=== PATIENT | male | born 1960 | race Caucasian/White ===

== ENCOUNTER 2020-09-08 07:23 | Outpatient (REF) | payer BC, SELFPAY ==
[2020-09-08 10:23] LABS: MANUAL DIFF FLAG NO
[2020-09-08 10:37] LABS: Basophils Percent Auto 0.7 % (0-2); Eosinophils Absolute Auto 0.2 X10*3/uL (0.0-0.4); Eosinophils Percent Auto 2.5 % (0-4); Hematocrit 44.2 % (42-52); Hemoglobin 14.4 g/dl (14.0-18.0); Imm Gran Abs Auto 0.02 X10*3/uL (0.00-0.03); Imm Gran Pct Auto 0.3 % (0.0-0.4); Lymphocytes Absolute Auto 1.8 X10*3/uL (1.2-4.9); Mean Corpuscular HGB Conc 32.6 g/dl (31.0-36.0); Mean Corpuscular Hemoglobin 30.8 pg (27.0-33.0); Mean Corpuscular Volume 94.6 fL (80-98); Mean Platelet Volume 11.4 fL (9.4-12.4); Monocytes Absolute Auto 0.7 X10*3/uL (0.1-1.2); Monocytes Percent Auto 11.3 % (2-11); Neutrophils Absolute Auto 3.4 X10*3/uL (2.0-8.3); Neutrophils Percent Auto 55.2 % (45-73); Platelet Count 245 X10*3/uL (160-400); Red Blood Count 4.67 X10*6/uL (4.60-5.80); Red Cell Distribution Width 12.4 % (11.0-16.0); White Blood Count 6.1 X10*3/uL (4.8-10.8)
[2020-09-08 11:05] LABS: Glucose Urine UA 100 MG/DL (NEG); Leukocyte Esterase Urine NEG (NEG); Nitrite Urine NEG (NEG); Specific Gravity - Urine <= 1.005 (1.005-1.025); Urine Blood NEG (NEG); Urine Ketones NEG (NEG); Urine Protein NEG (NEG-TRACE)
[2020-09-08 11:06] LABS: Alanine Aminotransferase 33 U/L (0-40); Albumin Level 4.6 g/dL (3.5-5.0); Alkaline Phosphatase 38 U/L (39-117); Anion Gap 15 (12-20); Aspartate Amino Transferase 28 U/L (5-37); Bilirubin Total 0.6 mg/dL (0.0-1.0); Blood Urea Nitrogen 18 mg/dL (9-16); Calcium 9.7 mg/dL (8.4-10.2); Carbon Dioxide 27 mmol/L (22-29); Chloride 102 mmol/L (96-108); Cholesterol 176 mg/dL; Estimated Glomerular Filt Rate > 60; Glucose Fasting 88 mg/dL (60-99); HDL Cholesterol 38 mg/dL; LDL Cholesterol Calculated 88 mg/dl; Potassium 5.1 mmol/L (3.3-5.1); Sodium 139 mmol/L (135-145); Total Protein 7.3 g/dL (6.5-8.0); Triglycerides 252 mg/dL
[2020-09-08 11:12] LABS: Appearance Urine CLEAR; Color Urine STRAW
[2020-09-08 11:29] LABS: Prostate Specific Antigen Scr 0.65 ng/mL (<0.05-4.0)
== END 2020-09-08 07:24 | disposition home or self-care (01) ==
LOC: HO.10HDL 07:23
PROVIDERS: Visit Provider Internal Medicine
DX: Z00.00 Encounter for general adult medical examination without abnormal findings (principal); Z12.5 Encounter for screening for malignant neoplasm of prostate
CPT/HCPCS: 36415; 80053; 80061; 81003; 84153; 85025

== ENCOUNTER 2021-03-28 07:31 | Outpatient (REF) | payer BC, SELFPAY ==
[2021-03-28 10:48] LABS: Alanine Aminotransferase 31 U/L (0-40); Albumin Level 4.7 g/dL (3.5-5.0); Alkaline Phosphatase 36 U/L (39-117); Anion Gap 13 (12-20); Aspartate Amino Transferase 24 U/L (5-37); Bilirubin Total 0.8 mg/dL (0.0-1.0); Blood Urea Nitrogen 14 mg/dL (9-16); Calcium 10.2 mg/dL (8.4-10.2); Carbon Dioxide 27 mmol/L (22-29); Chloride 105 mmol/L (96-108); Cholesterol 171 mg/dL; Estimated Glomerular Filt Rate > 60; Glucose Fasting 98 mg/dL (60-99); HDL Cholesterol 41 mg/dL; LDL Cholesterol Calculated 95 mg/dl; Potassium 5.3 mmol/L (3.3-5.1); Sodium 140 mmol/L (135-145); Total Protein 7.3 g/dL (6.5-8.0); Triglycerides 177 mg/dL
== END 2021-03-28 07:32 | disposition home or self-care (01) ==
LOC: HO.10HDL 07:31
PROVIDERS: Visit Provider Internal Medicine
DX: I10 Essential (primary) hypertension (principal); E78.5 Hyperlipidemia, unspecified
CPT/HCPCS: 36415; 80053; 80061

== ENCOUNTER 2022-05-22 07:26 | Outpatient (REF) | payer BC, SELFPAY ==
[2022-05-22 10:37] LABS: MANUAL DIFF FLAG NO
[2022-05-22 10:46] LABS: Basophils Absolute Auto 0.1 X10*3/uL (0.0-0.2); Basophils Percent Auto 0.7 % (0-2); Eosinophils Absolute Auto 0.1 X10*3/uL (0.0-0.4); Hematocrit 44.6 % (42.0-52.0); Hemoglobin 14.4 g/dl (14.0-18.0); Imm Gran Abs Auto 0.01 X10*3/uL (0.00-0.03); Imm Gran Pct Auto 0.1 % (0.0-0.4); Lymphocytes Absolute Auto 2.2 X10*3/uL (1.2-4.9); Lymphocytes Percent Auto 31.2 % (20-40); Mean Corpuscular HGB Conc 32.3 g/dl (31.0-36.0); Mean Corpuscular Hemoglobin 30.3 pg (27.0-33.0); Mean Corpuscular Volume 93.9 fL (80.0-98.0); Mean Platelet Volume 11.1 fL (9.4-12.4); Monocytes Absolute Auto 0.8 X10*3/uL (0.1-1.2); Monocytes Percent Auto 11.1 % (2-11); Neutrophils Absolute Auto 3.8 x10*3/uL (2.0-8.3); Neutrophils Percent Auto 54.9 % (45-73); Platelet Count 229 X10*3/uL (160-400); Red Blood Count 4.75 X10*6/uL (4.60-5.80); Red Cell Distribution Width 12.8 % (11.0-16.0); White Blood Count 6.9 X10*3/uL (4.8-10.8)
[2022-05-22 11:16] LABS: Alanine Aminotransferase 28 U/L (0-40); Albumin Level 4.7 g/dL (3.5-5.0); Alkaline Phosphatase 35 U/L (39-117); Anion Gap 14 (12-20); Aspartate Amino Transferase 24 U/L (5-37); Bilirubin Total 0.5 mg/dL (0.0-1.0); Blood Urea Nitrogen 17 mg/dL (9-16); Calcium 9.8 mg/dL (8.4-10.2); Carbon Dioxide 28 mmol/L (22-29); Chloride 102 mmol/L (96-108); Cholesterol 189 mg/dL; Estimated Glomerular Filt Rate 56; Glucose Fasting 97 mg/dL (60-99); HDL Cholesterol 41 mg/dL; LDL Cholesterol Calculated 96 mg/dl; Potassium 5.2 mmol/L (3.3-5.1); Sodium 139 mmol/L (135-145); Total Protein 7.4 g/dL (6.5-8.0); Triglycerides 260 mg/dL
[2022-05-22 11:38] LABS: Prostate Specific Antigen Scr 0.59 ng/mL (<0.05-4.0)
== END 2022-05-22 07:27 | disposition home or self-care (01) ==
LOC: HO.10HDL 07:26
PROVIDERS: Visit Provider Internal Medicine
DX: Z00.00 Encounter for general adult medical examination without abnormal findings (principal); Z12.5 Encounter for screening for malignant neoplasm of prostate
CPT/HCPCS: 36415; 80053; 80061; 84153; 85025

== ENCOUNTER 2022-09-17 09:35 | Outpatient (REF) | payer BC, SELFPAY ==
[2022-09-17 11:30] LABS: Anion Gap 14 (12-20); Blood Urea Nitrogen 18 mg/dL (9-16); Calcium 9.6 mg/dL (8.4-10.2); Carbon Dioxide 27 mmol/L (22-29); Chloride 104 mmol/L (96-108); Estimated Glomerular Filt Rate > 60; Glucose Random 102 mg/dL (60-115); Potassium 4.7 mmol/L (3.3-5.1); Sodium 140 mmol/L (135-145)
== END 2022-09-17 09:36 | disposition home or self-care (01) ==
LOC: HO.10HDL 09:35
PROVIDERS: Visit Provider Internal Medicine
DX: I12.9 Hypertensive chronic kidney disease with stage 1 through stage 4 chronic kidney disease, or unspecified chronic kidney disease (principal); N18.9 Chronic kidney disease, unspecified
CPT/HCPCS: 36415; 80048

== ENCOUNTER 2023-04-24 07:29 | Outpatient (REF) | payer BC, SELFPAY ==
[2023-04-24 10:50] LABS: MANUAL DIFF FLAG NO
[2023-04-24 10:57] LABS: Basophils Absolute Auto 0.1 X10*3/uL (0.0-0.2); Basophils Percent Auto 0.9 % (0-2); Eosinophils Absolute Auto 0.1 X10*3/uL (0.0-0.4); Eosinophils Percent Auto 1.6 % (0-4); Hematocrit 44.3 % (42.0-52.0); Hemoglobin 14.5 g/dl (14.0-18.0); Imm Gran Abs Auto 0.02 X10*3/uL (0.00-0.03); Imm Gran Pct Auto 0.3 % (0.0-0.4); Lymphocytes Absolute Auto 2.3 X10*3/uL (1.2-4.9); Mean Corpuscular HGB Conc 32.7 g/dl (31.0-36.0); Mean Corpuscular Hemoglobin 30.3 pg (27.0-33.0); Mean Corpuscular Volume 92.7 fL (80.0-98.0); Mean Platelet Volume 10.8 fL (9.4-12.4); Monocytes Absolute Auto 0.7 X10*3/uL (0.1-1.2); Monocytes Percent Auto 10.1 % (2-11); Neutrophils Absolute Auto 3.6 x10*3/uL (2.0-8.3); Neutrophils Percent Auto 53.1 % (45-73); Platelet Count 251 X10*3/uL (160-400); Red Blood Count 4.78 X10*6/uL (4.60-5.80); Red Cell Distribution Width 13.1 % (11.0-16.0); White Blood Count 6.9 X10*3/uL (4.8-10.8)
[2023-04-24 11:03] LABS: Alanine Aminotransferase 28 U/L (0-40); Albumin Level 4.6 g/dL (3.5-5.0); Alkaline Phosphatase 36 U/L (39-117); Anion Gap 15 (12-20); Aspartate Amino Transferase 25 U/L (5-37); Bilirubin Total 0.6 mg/dL (0.0-1.0); Blood Urea Nitrogen 16 mg/dL (9-16); Calcium 10.2 mg/dL (8.4-10.2); Carbon Dioxide 27 mmol/L (22-29); Chloride 102 mmol/L (96-108); Cholesterol 166 mg/dL (<200); Estimated Glomerular Filt Rate 59; Glucose Fasting 99 mg/dL (60-99); HDL Cholesterol 37 mg/dL (>40); LDL Cholesterol Calculated 105 mg/dL (<100); Sodium 139 mmol/L (135-145); Total Protein 7.7 g/dL (6.5-8.0); Triglycerides 123 mg/dL (<150)
[2023-04-24 11:21] LABS: Prostate Specific Antigen 1.33 ng/mL (<0.05-4.0)
== END 2023-04-24 07:30 | disposition home or self-care (01) ==
LOC: HO.10HDL 07:29
PROVIDERS: Visit Provider Internal Medicine
DX: Z12.5 Encounter for screening for malignant neoplasm of prostate (principal); I12.9 Hypertensive chronic kidney disease with stage 1 through stage 4 chronic kidney disease, or unspecified chronic kidney disease; N18.9 Chronic kidney disease, unspecified; E78.00 Pure hypercholesterolemia, unspecified; N40.0 Benign prostatic hyperplasia without lower urinary tract symptoms
CPT/HCPCS: 36415; 80053; 80061; 84153; 85025

== ENCOUNTER 2023-09-16 09:29 | Outpatient (REF) | payer BC, SELFPAY ==
[2023-09-16 11:28] LABS: Anion Gap 12 (12-20); Blood Urea Nitrogen 18 mg/dL (9-16); Calcium 9.7 mg/dL (8.4-10.2); Carbon Dioxide 29 mmol/L (22-29); Chloride 105 mmol/L (96-108); Estimated Glomerular Filt Rate 58; Glucose Random 94 mg/dL (60-115); Potassium 4.7 mmol/L (3.3-5.1); Sodium 141 mmol/L (135-145)
== END 2023-09-16 09:30 | disposition home or self-care (01) ==
LOC: HO.10HDL 09:29
PROVIDERS: Visit Provider Internal Medicine
DX: E78.00 Pure hypercholesterolemia, unspecified (principal); I12.9 Hypertensive chronic kidney disease with stage 1 through stage 4 chronic kidney disease, or unspecified chronic kidney disease; N18.9 Chronic kidney disease, unspecified
CPT/HCPCS: 36415; 80048

== ENCOUNTER 2024-05-01 07:49 | Outpatient (REF) | payer BC, SELFPAY ==
[2024-05-01 10:07] LABS: MANUAL DIFF FLAG NO
[2024-05-01 10:09] LABS: Basophils Percent Auto 0.5 % (0-2); Eosinophils Absolute Auto 0.1 X10*3/uL (0.0-0.4); Eosinophils Percent Auto 1.5 % (0-4); Hematocrit 42.3 % (42.0-52.0); Hemoglobin 13.9 g/dl (14.0-18.0); Imm Gran Abs Auto 0.01 X10*3/uL (0.00-0.03); Imm Gran Pct Auto 0.2 % (0.0-0.4); Lymphocytes Absolute Auto 1.9 X10*3/uL (1.2-4.9); Lymphocytes Percent Auto 30.2 % (20-40); Mean Corpuscular HGB Conc 32.9 g/dl (31.0-36.0); Mean Corpuscular Hemoglobin 30.8 pg (27.0-33.0); Mean Corpuscular Volume 93.6 fL (80.0-98.0); Mean Platelet Volume 10.9 fL (9.4-12.4); Monocytes Absolute Auto 0.7 X10*3/uL (0.1-1.2); Monocytes Percent Auto 10.5 % (2-11); Neutrophils Absolute Auto 3.5 x10*3/uL (2.0-8.3); Neutrophils Percent Auto 57.1 % (45-73); Platelet Count 249 X10*3/uL (160-400); Red Blood Count 4.52 X10*6/uL (4.60-5.80); Red Cell Distribution Width 12.8 % (11.0-16.0); White Blood Count 6.2 X10*3/uL (4.8-10.8)
[2024-05-01 10:40] LABS: Alanine Aminotransferase 37 U/L (0-40); Albumin Level 4.4 g/dL (3.5-5.0); Alkaline Phosphatase 29 U/L (39-117); Anion Gap 14 (12-20); Aspartate Amino Transferase 26 U/L (5-37); Bilirubin Total 0.7 mg/dL (0.0-1.0); Blood Urea Nitrogen 16 mg/dL (9-16); Calcium 9.9 mg/dL (8.4-10.2); Carbon Dioxide 28 mmol/L (22-29); Chloride 104 mmol/L (96-108); Cholesterol 119 mg/dL (<200); Estimated Glomerular Filt Rate 54; Glucose Fasting 101 mg/dL (60-99); HDL Cholesterol 38 mg/dL (>40); LDL Cholesterol Calculated 62 mg/dL (<100); Potassium 4.6 mmol/L (3.3-5.1); Sodium 141 mmol/L (135-145); Triglycerides 97 mg/dL (<150)
[2024-05-01 10:41] LABS: Prostate Specific Antigen Scr 0.83 ng/mL (<0.05-4.0)
== END 2024-05-01 07:50 | disposition home or self-care (01) ==
LOC: HO.10HDL 07:49
PROVIDERS: Visit Provider Internal Medicine
DX: I10 Essential (primary) hypertension (principal); E78.00 Pure hypercholesterolemia, unspecified; R35.1 Nocturia; Z12.5 Encounter for screening for malignant neoplasm of prostate
CPT/HCPCS: 36415; 80053; 80061; 84153; 85025

== ENCOUNTER 2024-08-14 08:53 | Day surgery (SDC) | payer BC, SELFPAY ==
--- OUTSIDE RECORDS SUMMARY | 2024-07-17 12:38 | XMS_ITS ---
Author Organization [facility] Address [address] [place] [address] Care Team Providers Care Pleasure Craft Sailor Name Role Phone Arian Soler MD Primary Care Provider Bunny Rothman Jr ALLERGIES No Known Allergies REASON FOR VISIT Patient presents today for a screening colonoscopy MEDICATIONS Medication SIG (Take, Route, Frequency, Duration) Notes Start Date End Date Status Lisinopril 5 MG 1 tablet Orally Once a day Active Viagra 50 MG 1 tablet as needed O rally Once a week Active Tadalafil 5 MG TAKE 1 TABLET BY RETA TH EVERY DAY Oral for 30 Active Rosuvastatin Calcium 10 MG TAKE 1 TABLET BY MOUTH AT BEDTIME Oral for 30 Active SOCIAL HISTORY Sex Assigned At : Social History Observation Description Sex Assigned At Unknown Alcohol Screen Question Answer Notes Did you have a drink containing alcohol in the p ast year? No Points 0 Interpretation Negative VITAL SIGNS BMI 24.88 kg/m2 07/13/2024 Blood pressure systolic 000 mm Hg 07/13/19 25 Blood pressure diastolic 00 mm Hg 025 Height 67.5 in 07/13/2024 Temperature 96.9 degrees Fahrenheit 07/13/19 25 Weight 161 lb 4 oz lbs 07/13/2024 Encounters Encounter Location Date Provider Diagnosis [facility] [address] [place] [address] 07/13/2024 Bunny Lla Jr Colon cancer screening Z12.11 ASSESSMENTS Encounter Date Diagnosis Assessment Notes Treatment Notes Treatment Clinical Notes 07/13/2024 Colon cancer screening (ICD-10 - Z12.11) Abdominal pain material was printed PLAN OF TREATMENT Treatment Notes Assessment Notes Colon cancer screening Abdominal pain ma terial was printed Next Appt Details Provider Name:Bunny valle Jr, 08/14/2024 11:20:00 AM, [address] [place] [address] , [place], [place], [phone],
--- OUTSIDE RECORDS SUMMARY | 2024-07-17 12:39 | XMS_ITS | Patient Health Record ---
Author Organization [facility] Address [address] [place] [address] Care Team Providers Care Nursing Home Director Name Role Phone Arian Soler MD Primary Care Provider Bunny Rothman Jr [phone] ALLERGIES No Known Allergies REASON FOR REFERRAL No Information MEDICATIONS Medication SIG (Take, Route, Frequency, Duration) [...] MOUTH AT BEDTIME Oral for 30 Active IMMUNIZATIONS Vaccine Route Administration Date Status Comme nts Influenza Unknown 02/25/2024 Administered SOCIAL HISTORY Sex Assigned At : Social History Observation Description Sex Assigned At Unknown Alcohol Screen Question Answer Notes Did you have a drink containing alcohol in the p ast year? No Points 0 Interpretation Negative PROBLEMS Problem Type ICD Code Onset Dates Problem Status W/U Status Risk SNOMED Code Notes Problem Colon cancer screening (V76.51) Active confirmed 214056738 VITAL SIGNS Temperature 96.9 degrees Fahrenheit 07/13/2024 Blood pressure diastolic 00 mm Hg 07/13/2024 Height 67.5 in 07/13/2024 Blood pressure systolic 000 mm Hg 07/13/2024 Weight 161 lb 4 oz lbs 07/13/2024 BMI 24.88 kg/m2 07/13/2024 Encounters Encounter Location Date Provider Diagnosis [facility] [address] [place] [address] 07/13/2024 Bunny Lal Jr Colon cancer screening Z12.11 ASSESSMENTS Encounter Date Diagnosis Assessment Notes Treatment Notes Treatment Clinical Notes 07/13/2024 Colon cancer screening (ICD-10 - Z12.11) Abdominal pain material was printed PLAN OF TREATMENT Future Test Test Name Order Date COLONOSCOPY 03/24/2015 Next Appt Details Provider Name:Bunny Cathryn valle Jr, 08/14/2024 11:20:00 AM, [address] [place] [address] , [place], [place], [phone], Insurance Providers Payer Name Payer Address Payer Phone Subscriber Number Group Number Insured Name Patient Relationship to Insured Coverage Start Date Coverage End Date [facility] [address] [place], [place] [id number] [phone] [id number] KINGA SUAREZ Self - patient is the insured MEDICAL (GENERAL) HISTORY Medical History History ICD Code Colonoscopy, 2009, tubular adenoma Hypertension Denies SC,DM,CVA,Lung disease,renal dise ase Surgical History Surgery Date(Month/Year) wart removal
[2024-08-12 13:45] VITALS: BMI 24.9
--- NOTE | 2024-08-13 09:07 | P.CONAN_ITS ---
Documented by User: Tia Solis NP 08/13/24 09:07 HPI - Anesthesia Eval Consult details Narrative: 64yo M for Colonoscopy [facility] Past Medical History Medical History Elevated cholesterol HTN (hypertension) Surgical History Surgical History H/O colonoscopy Social History Social History Are you a primary senior care specialist to a significant other at home: No Do you presently have visiting nurse or other home services: No Patient Tobacco Use Status: Former Tobacco user Tobacco use type: Cigarette Meds Allergies Allergy/AdvReac Type Severity Reaction Status Date / Time No Known Allergies Allergy Verified 08/14/24 09:37 Home Medications ?Medication ?Instructions ?Recorded ?Confirmed ?Last Taken ?Type lisinopril 5 mg tablet 5 mg PO DAILY 08/12/24 08/14/24 08/14/24 History rosuvastatin 10 mg tablet 10 mg PO BEDTIME 08/12/24 08/14/24 Unknown History tadalafil 5 mg tablet 5 mg PO DAILY 08/12/24 08/14/24 08/14/24 History Exam Height,Weight and Vital Signs: Height 5 ft 7.5 in Weight 73.142 kg Assessment and Plan Assessment Anesthesia Assessment: Chart Reviewed Documented by User: Makenzie Gonzalez MD 08/14/24 10:44 HPI - Anesthesia Eval Consult details Narrative: 64yo M for Colonoscopy. 08/14/24: Abnormal EKG on monitor. 12 lead EKG obtained. LBBB. Patient has h/o HTN . On medication. Otherwise no cardiac history or symptoms. Given a copy of his EKG and advised to follow up with his PCP [facility] Active Problems Active Problems: HTN Hypercholesterolemia Marijuana edibles. Last 2 days ago Tadalafil use this morning Past Medical History Medical History Elevated cholesterol HTN (hypertension) Family History Family history of problems with anesthesia: No Surgical History Surgical History H/O colonoscopy History of Problems with Anesthesia: No Social History Social History Are you a primary senior care specialist to a significant other at home: No Do you presently have visiting nurse or other home services: No Patient Tobacco Use Status: Former Tobacco user Tobacco use type: Cigarette Meds Allergies Allergy/AdvReac Type Severity Reaction Status Date / Time No Known Allergies Allergy Verified 08/14/24 09:37 Home Medications ?Medication ?Instructions ?Recorded ?Confirmed ?Last Taken ?Type lisinopril 5 mg tablet 5 mg PO DAILY 08/12/24 08/14/24 08/14/24 History rosuvastatin 10 mg tablet 10 mg PO BEDTIME 08/12/24 08/14/24 Unknown History tadalafil 5 mg tablet 5 mg PO DAILY 08/12/24 08/14/24 08/14/24 History Exam Height,Weight and Vital Signs: Height 5 ft 7.5 in Weight 73.142 kg Vital Signs Temp Pulse Resp BP Pulse Ox O2 Del Method 08/14/24 09:42 97.2 F 61 16 137/69 97 Room Air Airway Mallampati Class: II TM Dist: >3cm Neck ROM: Full Loose/Missing/Broken Teeth: Yes (Missing molars) Heart: RRR Lungs: CTAB Assessment and Plan Assessment Anesthesia Assessment: Anesthesia Plan Discussed and Chart Reviewed Final Anesthetic Review Family History of Problems with Anesthesia: No History of Problems with Anesthesia: No NPO: Yes ASA Class: II Final Preanesthetic Review: No Changes in Pt Med Stat, Meds/Allgs Chart Reviewed, Consent Obtained/Reviewed and Anes Risks/Benef Reviewed Patient Risk: Intermediate Procedure Risk: Low Assessment/Block/Sedation in SS: Assess/Block/Sedation-SS Anesthetic Plan Anesthetic Plan: TIVA Disposition: Standard PACU
--- OUTSIDE RECORDS SUMMARY | 2024-08-14 09:12 | XMS_ITS | Patient Health Record ---
Author Organization [facility] Address [address] [place] [address] Care Team Providers Care Social Work Nurse Name Role Phone Arian Soler MD Primary Care Provider Bunny Rothman Jr [phone] ALLERGIES No Known Allergies REASON FOR REFERRAL No Information MEDICATIONS Medication SIG (Take, Route, Frequency, Duration) Notes Start Date End Date Status Lisinopril 5 MG 1 tablet Orally Once a day Active Rosuvastatin Calcium 10 MG TAKE 1 TABLET BY MOUTH AT BEDTIME Oral for 30 Active Tadalafil 5 MG TAKE 1 TABLET BY RETA TH EVERY DAY Oral for 30 Active IMMUNIZATIONS Vaccine Route [...] SNOMED Code Notes Problem Colon cancer screening (Z12.11) Active confirmed 539349230 Problem Encounter for other preprocedural examination (Z01.818) Active confirmed 858869027 VITAL SIGNS Temperature 96.9 degrees Fahrenheit 07/13/2024 Blood pressure diastolic 00 mm Hg 07/13/2024 Height 67.5 in 07/13/2024 Blood pressure systolic 000 mm Hg 07/13/2024 Weight 161 lb 4 oz lbs 07/13/2024 BMI 24.88 kg/m2 07/13/2024 Encounters Encounter Location Date Provider Diagnosis [facility] [address] [place], [place] [id number] 08/14/2024 Bunny Lal Jr [facility] [address] [place] [address] 07/13/2024 Bunny Lal Jr Colon cancer screening Z12.11 and Encounter for other preprocedural examination Z01.818 ASSESSMENTS Encounter Date Diagnosis Assessment Notes Treatment Notes Treatment Clinical Notes 07/13/2024 Colon cancer screening (ICD-10 - Z12.11) Abdominal pain material was printed,Colonosc opy material was printed 07/13/2024 Encounter for other preprocedural examination (ICD-10 - Z01.818) PLAN OF TREATMENT Future Test Test Name Order Date COLONOSCOPY 03/24/2015 Next Appt Details Provider Name:Bunny valle Jr, 08/14/2024 10:40:00 AM, [address] [place] [address] , [place], [place], [phone], Insurance Providers Payer Name Payer Address Payer Phone Subscriber Number Group Number Insured Name Patient Relationship to Insured Coverage Start Date Coverage End Date [facility] [address] [place], [place] [id number] KINGA SUAREZ Self - patient is the insured MEDICAL (GENERAL) HISTORY Medical History History ICD Code Colonoscopy, 07/23, normal, f reyna-year followup for history of tubular adenomas. Hypertension Hyperlipidemia Surgical History Surgery Date(Month/Year)
--- OUTSIDE RECORDS SUMMARY | 2024-08-14 09:13 | XMS_ITS ---
Author Organization [facility] Address [address] [place] [address] Care Team Providers Care Staff Air Tactical Officer Name Role Phone Arian Soler MD Primary Care Provider Unavaila Bunny Florentino Jr REASON FOR VISIT screening Encounters Encounter Location Date Provider Diagnosis [facility] Outpatient [address] [place] [phone] 08/14/2024 Bunny Lal Jr PLAN OF TREATMENT Next Appt Details Provider Name:Bunny valle Jr, 08/14/2024 10:40:00 AM, [address] [place] [address] , [place], [place], [phone],
--- OUTSIDE RECORDS SUMMARY | 2024-08-14 09:13 | XMS_ITS ---
Author Organization [facility] Address [address] [place] [address] Care Team Providers Care Marine Machinist Name Role Phone Arian Soler MD Primary Care Provider Bunny Rothman Jr Unavailable ALLERGIES No Known Allergies REASON FOR VISIT [...] TH EVERY DAY Oral for 30 Active SOCIAL HISTORY Sex Assigned At : Social History Observation Description Sex Assigned At Unknown Alcohol Screen Question Answer Notes Did you have a drink containing alcohol in the p ast year? No Points 0 Interpretation Negative PROBLEMS Problem Type ICD Code Onset Dates Problem Status W/U Status Risk SNOMED Code Notes Problem Colon cancer screening (Z12.11) Active confirmed 934485972 Problem Encounter for other preprocedural examination (Z01.818) Active confirmed 632598098 VITAL SIGNS BMI 24.88 kg/m2 07/13/2024 Blood pressure systolic 000 mm Hg 07/13/19 25 Blood pressure diastolic 00 mm Hg 025 Height 67.5 in 07/13/2024 Temperature 96.9 degrees Fahrenheit 07/13/19 25 Weight 161 lb 4 oz lbs 07/13/2024 Encounters Encounter Location Date Provider Diagnosis [facility] [address] [place] [address] 07/13/2024 Bunny Lal Jr Colon cancer screening Z12.11 and Encounter for other preprocedural examination Z01.818 ASSESSMENTS Encounter Date Diagnosis Assessment Notes Treatment Notes Treatment Clinical Notes 07/13/2024 Colon cancer screening (ICD-10 - Z12.11) Abdominal pain material was printed,Colonosc opy material was printed 07/13/2024 Encounter for other preprocedural examination (ICD-10 - Z01.818) PLAN OF TREATMENT Treatment Notes Assessment Notes Colon cancer screening Abdominal pain andrei vigil was printed,Colonoscopy material was printed Next Appt Details Follow Up: 1 Year, Reason: Provider Name:Bunny valle Jr, 08/14/2024 10:40:00 AM, [address] [place] [address], [phone], Progress Notes * Examination Category Sub-Category Detail Notes General Examination GENERAL APPEARANCE: in no ac quileute distress HEAD: normocephalic EYES: sclera non-icteric NECK/THYROID: no lymphadenopathy HEART: S1, S2 normal, no mu rmurs CHEST: normal shape and exp ansion LUNGS: clear to auscultatio n bilaterally ABDOMEN: soft, nontender, non distended, bowel sounds present, no organomegaly SKIN: anicteric EXTREMITIES: no clubbing, cyanosi s, or edema PSYCH: cognitive function i ntact ORAL CAVITY: mucosa moist
[2024-08-14 09:42] VITALS: BP 137/69; PULSE 61; RESP 16; TEMP 36.2; O2SAT 97; BMI 23.4
--- NOTE | 2024-08-14 09:53 | ECG_ITS ---
Test Reason : SHORT STAY BED 4 Blood Pressure : */* mmHG Vent. Rate : 48 BPM Atrial Rate : 48 BPM P-R Int : 142 ms QRS Dur : 132 ms QT Int : 492 ms P-R-T Axes : 62 -1 -11 degrees QTcB Int : 439 ms Sinus bradycardia Left bundle branch block Abnormal ECG When compared with ECG of 02-Dec-2009 08:32, Left bundle branch block Present Referred By: Makenzie Gonzalez Electronically Signed By: Alfonso Lam
[2024-08-14] MEDS: Lactated Ringers 1,000 ML 100 ML IVCONT (10:09)
--- NOTE | 2024-08-14 10:40 | MHC.SHP ---
Pre-Procedural Eval Section A - 24 Hr Update-Section A only Date of Service: 08/14/24 Section B - Complete if H&P > 30 days Chief Complaint: screening Details of Present Illness: see H&P no changes Relevant Family History (Specify if Yes): No Relevant Social History: None Present Medications: see Short Stay Collaborative assessment Medical History: No relevant PMH History of Previous Operations: No relevant previous surgery Allergies: Allergies Allergy/AdvReac Type Severity Reaction Status Date / Time No Known Allergies Allergy Verified 08/14/24 09:37 Review of Systems Sugical H&P ROS: Negative: Constitution, Cardiovascular, Respiratory, Neurological, Psychiatric, Hem-Onc, Allergic/Immunologic, Gastrointestinal, Genitourinary, Musculoskeletal, Integumentary, Endocrine and Eyes/Ears/Nose/Throat Exam Surgical H&P Exam: Normal: HEENT, Normal: Heart, Normal: Lungs, Normal: Extremities, Normal: Abdomen, Normal: Skin and Normal: Neurological Plan Diagnosis/Plan: Unchanged I have reviewed the history and physical and performed a pertinent physical examination on my patient. No changes have occurred unless specified. Time Spent With Patient Time: Total time managing care of this patient today ____ minutes.
[2024-08-14 11:20] VITALS: BP 99/52; PULSE 52; RESP 17; TEMP 36.2; O2SAT 96
--- NOTE | 2024-08-14 11:30 | OP_ITS ---
DATE OF SERVICE: 08/14/2024 SURGEON: Bunny Lal MD INDICATIONS: Colon cancer screening. PREOPERATIVE DIAGNOSIS: POSTOPERATIVE DIAGNOSIS: PROCEDURE PERFORMED: Colonoscopy to the terminal ileum with biopsy. ESTIMATED BLOOD LOSS: COMPLICATIONS: ANESTHESIA: Monitored anesthesia care. ASSISTANTS: SPECIMENS: DESCRIPTION OF PROCEDURE: A history and physical was performed. The risks and benefits of the procedure were explained to the patient and informed consent was obtained. The patient was placed in the left lateral decubitus position. A digital rectal exam was performed and was found to be normal. The Olympus pediatric video colonoscope was introduced into the rectum and advanced to the cecum. The cecum was identified by transillumination, palpation, and identification of ileocecal valve. Examination was performed and the scope was removed. He tolerated the procedure well and was returned to recovery area in stable condition. FINDINGS: The terminal ileum was examined and appeared normal. The visualized colonic mucosa was normal. The quality of the prep was good. Two polyps were identified. These were less than 5 mm in size and were removed with biopsy forceps at 60 cm and 40 cm. No other polyps were identified. Retroflexed examination showed some small internal hemorrhoids. IMPRESSION: Colon polyps. RECOMMENDATION: Follow up the biopsy results. MD MYRNA Manuel/ROBERL / [id number]
[2024-08-14 11:32] VITALS: BP 111/48; PULSE 52; RESP 16; TEMP 36.2; O2SAT 99
== END 2024-08-14 12:41 | disposition home or self-care (01) ==
PROVIDERS: PCP Internal Medicine; Visit Provider Internal Medicine Gastroenterology
PROC: 0DJD8ZZ Inspection of Lower Intestinal Tract, Via Natural or Artificial Opening Endoscopic (ICD-10-PCS; CPT 45378; principal; 2024-08-14 10:40)
DX: Z12.11 Encounter for screening for malignant neoplasm of colon (principal); Z86.0101 Personal history of adenomatous and serrated colon polyps; D12.4 Benign neoplasm of descending colon; D12.5 Benign neoplasm of sigmoid colon; K64.8 Other hemorrhoids; I10 Essential (primary) hypertension; E78.5 Hyperlipidemia, unspecified; Z79.899 Other long term (current) drug therapy; Z87.891 Personal history of nicotine dependence
CPT/HCPCS: 45380; 88305; 93005; J2003; J2704

== ENCOUNTER → 2024-08-14 09:53 | Outpatient (BNV) | payer BC, SELFPAY | PROVIDERS: PCP Internal Medicine; Visit Provider Internal Medicine Cardiovascular Disease | DX: I44.7 Left bundle-branch block, unspecified (principal); R00.1 Bradycardia, unspecified | CPT/HCPCS: 93010 ==

== ENCOUNTER 2024-12-10 09:54 | Outpatient (AMB) | payer BC, SELFPAY ==
[2024-12-10 10:00] VITALS: BP 120/70; PULSE 56; TEMP 36.2; O2SAT 98; BMI 23.3
--- NOTE | 2024-12-10 10:00 | A.OFFPC_ITS ---
Vital Signs 12/10/24 10:00 Height 5 ft 7.5 in Weight 151 lb BMI 23.3 BP 120/70 Blood Pressure Location Lt brachial Position Sitting Pulse 56 Pulse Source Pulse Oximeter Temp 97.1 F Temp Source Axillary Pulse Oximetry (%) 98 Oxygen Delivery Method Room Air Intake Visit Reasons: Routine Supervisor Molding Required: No Accompanied by: Self / Same As Patient Allergies No Known Allergies Allergy (Verified 12/10/24 10:00) Tobacco use date assessed: 12/10/24 Fall risk assessment: No Falls in past year Last assessed Fall Risk: 12/10/24 Dental Screening Dental Screen Date: 12/10/24 Did you have a dental visit in the last 12 months?: Yes Did you have a dental problem in the last 6 months where you did not have access to dental care?: No HPI HPI Comments History of Present Illness Details The patient is a 64 year old male with a past medical history of hypertension, hyperlipidemia, GERD, BPH, ED presenting for follow up. Last seen by pcp in Mar for annual CV: On lisinopril, crestor. Blood pressure is well controlled. Denies chest pain, exertional dyspnea Still battling grief. Younger fall 2023. Colonoscopy:2015 ROS CONSTITUTIONAL: Denies weight loss, fever and chills. HEENT: Denies changes in vision and hearing. RESPIRATORY: Denies SOB and cough. CV: Denies palpitations and CP GI: Denies abdominal pain, nausea, vomiting and diarrhea. : Denies dysuria and urinary frequency. MSK: Denies new myalgia and joint pain. SKIN: Denies rash and pruritus. NEUROLOGICAL: Denies headache PSYCHIATRIC: Denies recent changes in mood. PHYSICAL EXAM: GENERAL: Alert and oriented x 3. NAD EYES: EOMI. Anicteric. HENT: Moist mucous membranes. No scleral icterus. No cervical lymphadenopathy. LUNGS: Clear to auscultation bilaterally. CARDIOVASCULAR: Regular rate and rhythm. No murmur. No JVD. ABDOMEN: Soft, non-tender +bs EXTREMITIES: No edema. Non-tender. SKIN: No rashes or lesions. Warm. NEUROLOGIC: No focal neurological deficits. CN II-XII grossly intact PSYCHIATRIC: Cooperative. Appropriate mood and affect [facility] Medical History Elevated cholesterol HTN (hypertension) Surgical History H/O colonoscopy (~08/14/24) Family History Mother No problems noted. Father No problems noted. Social History Housing: Apartment Are you a primary plant health care technician to a significant other at home: No Do you presently have visiting nurse or other home services: No Patient Tobacco Use Status: Former Tobacco user Tobacco use type: Cigarette e-Cigarette/Vaping Use: Former Use service: No Current occupational status: employed Cognitive needs: No Hearing needs: No Vision needs: Yes (rx glasses) Questionnaire PHQ-9 Over the last 2 weeks, how often have you been bothered by any of the following problems? 1. Little interest or pleasure in doing things: not at all 2. Feeling down, depressed, or hopeless: not at all 3. Trouble falling or staying asleep, or sleeping too much: not at all 4. Feeling tired or having little energy: not at all 5. Poor appetite or overeating: not at all 6. Feeling bad about yourself - or that you are a failure or have let yourself or your family down: not at all 7. Trouble concentrating on things, such as reading the newspaper or watching television: not at all 8. Moving or speaking so slowly that other people could have noticed. Or the opposite - being so fidgety or restless that you have been moving around a lot more than usual: not at all 9. Thoughts that you would be better off or of hurting yourself in some way: not at all Total score: 0 Depression Screening Interpretation: Negative Depression Screening Done: Yes 40165 - PHQ-9 Billing: Yes Source: Developed by Drs. Matthew Mitchell, Liv Morales, Bertrand Oconnor and colleagues, with an educational daniel from [employer]. Thrive Questionnaire Date Thrive assessed: 12/10/24 I am a: Patient Within the past 12 months, did the food you bought not last and you didn't have the money to get more?: Never true Within the past 12 months, did you worry whether your food would run out before you got money to buy more?: Never true Do you have trouble paying for medicines?: No Do you have trouble getting transportation to medical appointments?: No Do you have trouble paying your heating and electricity bill?: No Do you have trouble taking care of your child, family member or friend?: No Do you have trouble with day-to-day activities such as bathing, preparing meals, shopping, managing finances, etc.?: No Are you currently unemployed and looking for a job?: No Are you interested in more education?: No THRIVE Score: 0 AUDIT C Alcohol Use Questionnaire (AUDIT-C) 1. How often do you have a drink containing alcohol?: Monthly or less 2. How many drinks containing alcohol do you have on a typical day when you are drinking?: 1 or 2 3. How often do you have six or more drinks on one occasion?: Less than monthly Total Score: 2 BECKY-7 AMB Questionnaire BECKY-7 Date BECKY - 7 assessed: 12/10/24 Feeling nervous, anxious, or on edge: 0 = Not at all Not being able to stop or control worryin = Not at all Worrying too much about different things: 0 = Not at all Trouble relaxin = Not at all Being so restless that it is hard to sit still: 0 = Not at all Becoming easily annoyed or irritable: 0 = Not at all Feeling afraid as if something awful might happen: 0 = Not at all Total BECKY-7 score (0-4 normal; 5-9 mild; 10-14 moderate; 15-21 severe): 0 Source: Developed by Drs. Matthew Mitchell, Liv Morales, Bertrand Oconnor and colleagues, with an educational daniel from [employer]. Physical exam (Primary Care) Vital Signs: Last Vital Signs Temp 97.1 F 12/10/24 10:00 Pulse 56 12/10/24 10:00 BP 120/70 12/10/24 10:00 Pulse Ox 98 12/10/24 10:00 Oxygen Delivery Method Room Air 12/10/24 10:00 BMI result Body Mass Index 23.3 Tobacco/Smoking Status: Tobacco use Status Tobacco use date assessed 12/10/24 12/10/24 10:02 Patient Tobacco Use Status Former Tobacco user 12/10/24 10:02 Tobacco use type Cigarette 12/10/24 10:02 e-Cigarette/Vaping Use Former Use 12/10/24 10:02 Depression Screening Interpretation: Negative Thrive Assessment: Date of Thrive Assessment Date Thrive assessed 12/10/24 12/10/24 10:02 Coding Level of Care Code New Pt Level 4 (81845) Complex EM visit Add On G2211 Diagnoses Screening, deficiency anemia, iron Z13.0 Primary hypertension I10 Hypertension type: primary hypertension Elevated cholesterol E78.00 Atypical nevi D22.9 Additional Codes PHQ-9 - 55449 - PHQ-9 Billing: Yes ([id number]) Assessment & Plan Assessment & Plan (1) Screening, deficiency anemia, iron: Code(s): Z13.0 - Encounter for screening for diseases of the blood and blood-forming organs and certain disorders involving the immune mechanism Category: Medical (2) HTN (hypertension): Code(s): I10 - Essential (primary) hypertension Category: Medical Qualifiers: Hypertension type: primary hypertension Qualified Code(s): I10 - Essential (primary) hypertension (3) Elevated cholesterol: Code(s): E78.00 - Pure hypercholesterolemia, unspecified Category: Medical (4) Atypical nevi: Code(s): D22.9 - Melanocytic nevi, unspecified Category: Medical Plan 64 year old to establish care Past medical, surgical, social reviewed HTN-well controlled referral to dermatology as requested Orders: Orders Prostate Specific Antigen 5 Months D22.9 - Melanocytic nevi, unspecified, E78.00 - Pure hypercholesterolemia, unspecified, I10 - Essential (primary) hypertension, Z12.5 - Encounter for screening for malignant neoplasm of prostate, Z13.0 - Encounter for screening for diseases of the blood and blood- forming organs and certain disorders involving the immune mechanism Complete Blood Count Auto Diff 5 Months D22.9 - Melanocytic nevi, unspecified, E78.00 - Pure hypercholesterolemia, unspecified, I10 - Essential (primary) hypertension, Z12.5 - Encounter for screening for malignant neoplasm of prostate, Z13.0 - Encounter for screening for diseases of the blood and blood- forming organs and certain disorders involving the immune mechanism Comprehensive Met. Panel 5 Months D22.9 - Melanocytic nevi, unspecified, E78.00 - Pure hypercholesterolemia, unspecified, I10 - Essential (primary) hypertension, Z12.5 - Encounter for screening for malignant neoplasm of prostate, Z13.0 - Encounter for screening for diseases of the blood and blood- forming organs and certain disorders involving the immune mechanism Lipid Panel 5 Months D22.9 - Melanocytic nevi, unspecified, E78.00 - Pure hy percholesterolemia, unspecified, I10 - Essential (primary) hypertension, Z12.5 - Encounter for screening for malignant neoplasm of prostate, Z13.0 - Encounter for screening for diseases of the blood and blood-forming organs and certain disorders involving the immune mechanism Referrals Dermatology Referral D22.9 - Melanocytic nevi, unspecified Medications: New rosuvastatin 10 mg PO BEDTIME 90 tabs 3RF lisinopril 5 mg PO DAILY 90 tabs 3RF tadalafil 5 mg PO DAILY 90 tabs 3RF
--- OUTSIDE RECORDS SUMMARY | 2024-12-10 11:18 | XMS_ITS | Patient Health Record ---
Author Organization [facility] Address [address] [place] [address] Care Team Providers Care Cook Night Name Role Phone Karlene OWEN, Arian Primary Care Provider Faribaa Bunny Florentino Jr Unavailable [phone] Allergies No Known Allergies Results Component Value Reference Range Notes Pathology Reviewed date:08/27/2024 09:35:56 AM Interpretation: Performing Lab:[facility], [address] [place] [phone] Notes/Report: Name: Mike Paul Age/Sex: 64/M : 1960 Unit#: [id number] Attend Dr: Bunny Lal MD Re08/14/24 Status : [facility] Location: [facility] Disch: SPEC : [id number] RECD: 08/14/24 STATUS: FARHANA MOSER NUM: [id number] LEATHA: 08/14/24-[address]: Bunny Lal MD ENTERED: 08/14/24-11 39 SP TYPE: Surgical OTHR DR: Arian Soler MD ORDERED: HE Stain/6, Gross Micro L4/2 Diagnosis A. Colon, at 60 cm, polyp: Tubular adenoma; negative for high-grade dysplasia and carcinoma. B. Colon, at 40 cm, polyp: Tubular adenoma; negative for high-grade dysplasia and carcinoma. Clinical History Pre-Op Dx: Screening Post-Op Dx: Colon polyps Microscopic Description Microscopic sections reviewed. Material Received A. Polyp at 60 cm B. Polyp at 40 cm Gross Description Received in 2 parts. A. Received in forma kevin labeled ?polyp at 60 cm? are 2 fragments of pink white soft tissue measuring 0.2 and 0. 3 cm in greatest dimension which are wrapped in lens paper and entirely submitted for micros copic examination, 2 pieces in cassette A. B. Received in forma kevin labeled ?polyp at 40 cm? is a fragment of gray-white soft tissue measuring 0.2 cm in greatest dimension which is wrapped in lens paper and entirely submitted for microscopic exam ination, 1 piece in cassette [facility] Copies To: Bunny Lal MD [address] [place] [address] CONTINUED ON NEXT PAGE Name: Mike Paul Age/Sex: 64/M : 1960 Unit#: [id number] Attend Dr: Bunny Lal MD Re08/14/24 Status : [facility] Location: [facility] Disch: SPEC : [id number] RECD: 08/14/24 STATUS: FARHANA MOSER NUM: [id number] LEATHA: 08/14/[address]: Bunny Lal MD ENTERED: 08/14/24 39 SP TYPE: Surgical OTHR DR: Arian Soler MD ORDERED: CHERRIE Stain/6, Gross Micro L4/2 Copies To: (Continued) Arian Soler MD [address] [place] [address] Signed (thomas steven on file) Joycelyn Paul 08/17/24 161 END OF REPORT Reason For Referral No Information Medications Medication SIG (Take, Route, Frequency, Duration) Notes Start Date End Date Status Lisinopril 5 MG 1 tablet Orally Once a day Active Rosuvastatin Calcium 10 MG TAKE 1 TABLET BY MOUTH AT BEDTIME Oral for 30 Active Tadalafil 5 MG TAKE 1 TABLET BY RETA TH EVERY DAY Oral for 30 Active Immunizations Vaccine Route Administration Date Status Comme nts Influenza Unknown 02/25/2024 Administered Social History Alcohol Screen Question Answer Notes Did you have a drink containing alcohol in the p ast year? No Points 0 Interpretation Negative Problems Problem Type SNOMED Code ICD Code Onset Dates Problem Status W/U Status Risk Notes Problem [id number] Colon cancer screening (Z12.11) Active confirmed Problem [id number] Encounter for other preprocedural examination (Z01.818) Active confirmed Vital Signs Temperature 96.9 degrees Fahrenheit 07/13/2024 Blood pressure diastolic 00 mm Hg 07/13/2024 Height 67.5 in 07/13/2024 Blood pressure systolic 000 mm Hg 07/13/2024 Weight 161 lb 4 oz lbs 07/13/2024 BMI 24.88 kg/m2 07/13/2024 Encounters Encounter Location Date Provider Diagnosis [facility] [address] [place] [phone] 08/14/2024 Bunny Lal Jr Colon cancer screening Z12.11 ; Colon polyps K63.5 and Personal history of colonic polyps Z86.0100 [facility] [address] [place] [phone] 07/13/2024 Bunny Lal Jr Colon cancer screening Z12.11 and Encounter for other preprocedural examination Z01.818 [facility] [address] [facility] [address] [place] [phone] 08/27/2024 Bunny Lal Jr Assessments Encounter Date Diagnosis (ICD Code) Assessment Notes Treatment Notes Treatment Clinical Notes Section Notes 08/14/2024 Colon cancer screening (ICD-10 - Z12.11) 08/14/2024 Colon polyps (ICD-10 - K63.5) 07/13/2024 Colon cancer screening (ICD-10 - Z12.11) Abdominal pain material was printed,Colon oscopy material was printed We discussed colonoscopy today. We discussed risks and benefits of the procedure today. He understands these and agrees to proceed. 07/13/2024 Encounter for other preprocedural examination (ICD-10 - Z01.818) We discussed colonoscopy today. We discussed risks and benefits of the procedure today. He understands these and agrees to proceed. 08/14/2024 Personal history of colonic polyps (ICD-10 - Z86.0100) Plan Of Treatment Future Test Test Name Order Date COLONOSCOPY 03/24/2015 Insurance Providers Payer Name Payer Address Payer Phone Subscriber Number Group Number Insured Name Patient Relationship to Insured Coverage Start Date Coverage End Date [facility] [address] [place], [place] [id number] MIKE PAUL Self - patient is the insured Medical (General) History Medical History History ICD Code Colonoscopy, 07/23, normal, f reyna-year followup for history of tubular adenomas. Hypertension Hyperlipidemia Surgical History Surgery Date(Month/Year)
== END 2024-12-10 10:26 | disposition home or self-care (01) ==
LOC: HO.HMCHD 09:55
PROVIDERS: PCP Internal Medicine; Visit Provider Internal Medicine
DX: Z13.0 Encounter for screening for diseases of the blood and blood-forming organs and certain disorders involving the immune mechanism (principal); I10 Essential (primary) hypertension; E78.00 Pure hypercholesterolemia, unspecified; D22.9 Melanocytic nevi, unspecified

== ENCOUNTER → 2024-12-10 09:54 | Outpatient (BNVA) | payer BC, SELFPAY | PROVIDERS: PCP Internal Medicine; Visit Provider Internal Medicine | DX: I10 Essential (primary) hypertension (principal); E78.00 Pure hypercholesterolemia, unspecified; D22.9 Melanocytic nevi, unspecified; Z79.899 Other long term (current) drug therapy; Z63.4 Disappearance and death of family member; Z13.30 Encounter for screening examination for mental health and behavioral disorders, unspecified; Z13.31 Encounter for screening for depression; Z13.0 Encounter for screening for diseases of the blood and blood-forming organs and certain disorders involving the immune mechanism | CPT/HCPCS: 96127 ==